=== PATIENT | male | born 1955 | race American Indian/Alaskan Native ===

== ENCOUNTER 2017-03-15 07:40 | Day surgery (SDC) | payer MEDICARE ==
[2017-03-15] MEDS ORDERED: NACL 0.9% 1000 ML 1,000 ML IV SCH (08:00)
--- NOTE | 2017-03-15 08:32 | Anesthesia Consultation ---
Anesthesia Consult and Med Hx Date of service: 03/15/17 - Airway Anesthetic Teeth Evaluation: Good (missing one lower left tooth) ROM Head & Neck: Adequate Mental/Hyoid Distance: Adequate Mallampati Class: Class II - Pulmonary Exam CTA: Yes - Cardiac Exam Cardiac Exam: RRR - Pre-Operative Health Status ASA Pre-Surgery Classification: ASA3 Proposed Anesthetic Plan: MAC - Pulmonary Hx Smoking: No Hx Respiratory Symptoms: Yes (bronchitis) COPD: Yes (02 AT NIGHT ) Hx Sleep Apnea: Yes (CPAP) - Cardiovascular System Hx Hypertension: Yes - Gastrointestinal Hx Gastroesophageal Reflux Disease: Yes - Endocrine Hx Non-Insulin Dependent Diabetes: Yes - Hematic Hx Anemia: Yes - Additional Comments Anesthesia Medical History Comments: sarcoidosis, osteoprosis, arthritis. Every morning, early, stuff has regurg.
--- NOTE | 2017-03-15 08:32 | Anesthesia Day of Surgery ---
Anesthesia Day of Surgery - Day of Surgery Patient Examined: Yes Patient H&P Reviewed: Yes Patient is NPO: Yes
[2017-03-15] MEDS ORDERED: WATER FOR IRRIG STERILE IR ONE (08:58)
[2017-03-15] MEDS ORDERED: DIPRIVAN 10 MG/ML IV ONE ×2 (09:08)
[2017-03-15] MEDS ORDERED: PEPCID IV ONE (09:15)
--- NOTE | 2017-03-15 12:01 | Short Stay Summary ---
Short Stay Documentation Date of service: 03/15/17 - History H&P: obtained from office - Allergies and Medications Current Medications: Allergies No Known Allergies Allergy (Verified 03/15/17 07:41) Home Medications Medication Instructions Recorded Confirmed Last Taken Type ALBUTEROL Inhaler [ProAir HFA 2 puff INHALATION PRN PRN 06/29/15 06/29/15 06:00 History Inhaler] Allopurinol [Zyloprim] 300 mg PO DAILY 06/29/15 06/29/15 03/14/17 History Cholecalciferol (Vitamin D3) 400 unit PO DAILY 06/29/15 06/29/15 03/14/17 History [Vitamin D] Diclofenac Dr [Voltaren Dr] 75 mg PO DAILY 06/29/15 06/29/15 03/14/17 History Folic Acid 1 mg PO QDAY 06/29/15 06/29/15 03/14/17 History Gabapentin [Neurontin] 300 mg PO TID 06/29/15 06/29/15 03/14/17 History Hydroxychloroquine [Plaquenil] 200 mg PO DAILY 06/29/15 06/29/15 03/14/17 History Lisinopril/Hydrochlorothiazide 1 tab PO DAILY 06/29/15 06/29/15 03/14/17 History [Zestoretic 20-12.5 mg] Methotrexate Sodium [Trexall] 2.5 mg PO DAILY 06/29/15 06/29/15 02/10/17 History Mometasone/Formoterol [Dulera 200 2 puff INHALATION BID 06/29/15 06/29/15 History Mcg/5 Mcg Inhaler] Omeprazole [PriLOSEC] 20 mg PO DAILY 06/29/15 06/29/15 03/14/17 History Oxycodone HCl [Oxycontin] 10 mg PO BID 06/29/15 06/29/15 03/14/17 History Prednisone [predniSONE (Emmie) ER 5 mg PO QDAY 06/29/15 06/29/15 03/14/17 History TAB] Tamsulosin [Flomax] 0.4 mg PO DAILY 06/29/15 06/29/15 03/14/17 History fentaNYL [Fentanyl] 1 patch TRANSDERMA Q72HR 01/06/29/15 03/14/17 History sulfaSALAzine [Azulfidine] 500 mg PO DAILY 06/29/15 06/29/15 03/14/17 History Active Medications Sodium Chloride (Nacl 0.9% 1000 Ml) 1,000 mls @ 50 mls/hr IV DIRECT CALOS Last Admin: 03/15/17 08:51 Dose: 50 mls/hr - Brief post op/procedure progress note Date of procedure: 03/15/17 Procedure: see dictation Estimated blood loss: none Pathology: none - Disposition Condition at discharge: Good Disposition: DC-01 TO HOME OR SELFCARE - Discharge Diagnoses (1) Dysphagia Status: Acute Qualifiers: Dysphagia type: D Short Stay Discharge Plan Activity: other (no driving for 24 hours) Weight Bearing Status: Full Weight Bearing Diet: regular Follow up with: SIVA YOUSSEF MD [Primary Care Provider] - 7 Days
--- NOTE | 2017-03-15 12:05 | Operative Report ---
Operative Report Operative Report: Date of procedure: 03/15/2017 Procedure: Esophagogastroduodenoscopy with balloon dilation of the distal esophagus to 18 mm. Preprocedure diagnosis: Dysphagia to solid foods Post procedure diagnosis: [Benign, peptic stricture at esophagogastric junction] Endoscopist: Dr. Philip Anesthesia: Monitored anesthesia care per anesthesia department Medications: Propofol per anesthesia Estimated blood loss: 0 After careful discussion of the nature and purpose of the procedure as well as details the technique risks benefits and alternatives consent was obtained. The patient was placed in the left lateral decubitus position and medicated per anesthesia. The tip of the [employer] EQ 570 video scope was passed per orum under direct vision into the esophagus and advanced into the stomach and descending duodenum. The descending duodenum the duodenal bulb and pylorus were symmetrical and normal. The scope was withdrawn into the stomach and the stomach then gently insufflated with air. The antrum was normal. The stomach was further insufflated and the scope was then retroflexed and partially withdrawn. The cardia, fundus, and body of the stomach were within normal limits and easily distensible.The scope was then withdrawn in the forward position. The esophagogastric junction was at [20 cm. There was a peptic stricture present at the esophagogastric junction. The esophagogastric junction was then dilated with the balloon. A 15-18 mm balloon was passed and the esophagogastric junction dilated over 2 minutes under direct observation.]. The esophageal body was normal throughout. The procedure was was well tolerated and the patient was observed in recovery. Impressions: Peptic stricture of the esophagogastric junction. Status post balloon dilation Plan: Continue acid suppression. Redilate when necessary. Electronically signed: Jose Philip MD
[2017-03-15 12:10] VITALS: BP 112/56
--- NOTE | 2017-03-15 13:20 | Post Anesthesia Evaluation ---
- Post Anesthesia Evaluation Patient Participated: Yes Airway Patent: Yes Stable Respiratory Function: Yes Temp > 96.8F: Yes Pain Manageable: Yes Adequeate Hydration: Yes Anesthesia Complications: No
== END 2017-03-15 07:41 | disposition home or self-care (01) ==
LOC: GIO 07:40
PROVIDERS: ATTEND Internal Medicine Gastroenterology
DX: K22.2 Esophageal obstruction (principal); D64.9 Anemia, unspecified; M19.90 Unspecified osteoarthritis, unspecified site; E11.9 Type 2 diabetes mellitus without complications; M81.0 Age-related osteoporosis without current pathological fracture; K21.9 Gastro-esophageal reflux disease without esophagitis; J44.9 Chronic obstructive pulmonary disease, unspecified; G47.33 Obstructive sleep apnea (adult) (pediatric); I10 Essential (primary) hypertension; Z98.890 Other specified postprocedural states; Z96.60 Presence of unspecified orthopedic joint implant; Z79.899 Other long term (current) drug therapy; Z80.3 Family history of malignant neoplasm of breast; Z80.42 Family history of malignant neoplasm of prostate
CPT/HCPCS: 43249; 82962; C1726; J2704; J7030

== ENCOUNTER 2018-01-06 10:04 | Emergency (ER) | payer MEDICARE ==
[2018-01-06 10:15] VITALS: BP 112/69
[2018-01-06] MEDS ORDERED: DILAUDID IM ONE (11:07)
[2018-01-06] MEDS ORDERED: TORADOL IM ONE (11:07)
--- NOTE | 2018-01-06 11:07 | Emergency Department Report ---
ED General Adult HPI - General Chief complaint: Pain General Stated complaint: PAIN/HIP Time Seen by Provider: 01/06/18 11:02 Source: patient Mode of arrival: Ambulatory Limitations: No Limitations - History of Present Illness Initial comments: Patient is a 62-year-old -[place] male with a past medical history rheumatoid arthritis and chronic pain and takes oxycodone and fentanyl for pain and states that he was handcuffed yesterday and fell to the ground. Patient is complaining of left shoulder pain and hand pain. Patient states pain is 8 out of 10 in severity couldn't sleep last night despite taking his pain management. Patient had no loss of consciousness or head injury - Related Data Home Medications Medication Instructions Recorded Confirmed Last Taken ALBUTEROL Inhaler [ProAir HFA 2 puff INHALATION PRN PRN 06/29/15 06/29/15 06:00 Inhaler] Allopurinol [Zyloprim] 300 mg PO DAILY 06/29/15 06/29/15 03/14/17 Cholecalciferol (Vitamin D3) 400 unit PO DAILY 06/29/15 06/29/15 03/14/17 [Vitamin D3] Diclofenac Dr [Voltdov Dr] 75 mg PO DAILY 06/29/15 06/29/15 03/14/17 Folic Acid 1 mg PO QDAY 06/29/15 06/29/15 03/14/17 Gabapentin [Neurontin] 300 mg PO TID 06/29/15 06/29/15 03/14/17 Hydroxychloroquine [Plaquenil] 200 mg PO DAILY 06/29/15 06/29/15 03/14/17 Lisinopril/Hydrochlorothiazide 1 tab PO DAILY 06/29/15 06/29/15 03/14/17 [Zestoretic 20-12.5 mg] Methotrexate Sodium [Trexall] 2.5 mg PO DAILY 06/29/15 06/29/15 02/10/17 Mometasone/Formoterol [Dulera 200 2 puff INHALATION BID 06/29/15 06/29/15 Mcg/5 Mcg Inhaler] Omeprazole [PriLOSEC] 20 mg PO DAILY 06/29/15 06/29/15 03/14/17 Oxycodone HCl [Oxycontin] 10 mg PO BID 06/29/15 06/29/15 03/14/17 Prednisone [predniSONE (Emmie) ER 5 mg PO QDAY 06/29/15 06/29/15 03/14/17 TAB] Tamsulosin [Flomax] 0.4 mg PO DAILY 06/29/15 06/29/15 03/14/17 fentaNYL [Fentanyl] 1 patch TRANSDERMA Q72HR 06/29/15 06/29/15 03/14/17 sulfaSALAzine [Azulfidine] 500 mg PO DAILY 06/29/15 06/29/15 03/14/17 Allergies Allergy/AdvReac Type Severity Reaction Status Date / Time No Known Allergies Allergy Verified 01/06/18 10:09 ED Review of Systems ROS: Stated complaint: PAIN/HIP Other details as noted in HPI Comment: All other systems reviewed and negative ED Past Medical Hx - Past Medical History Hx Hypertension: Yes Hx Congestive Heart Failure: Yes Hx Diabetes: Yes (DIET CONTROLLED) Hx Arthritis: Yes Hx Headaches / Migraines: Yes (MIGRAINES YOUNG ADULT) Hx Asthma: Yes Hx COPD: Yes (02 AT NIGHT ) - Surgical History Hx Cholecystectomy: Yes - Social History Smoking Status: Never Smoker - Medications Home Medications: Home Medications Medication Instructions Recorded Confirmed Last Taken Type ALBUTEROL Inhaler [ProAir HFA 2 puff INHALATION PRN PRN 06/29/15 06/29/15 06:00 History Inhaler] Allopurinol [Zyloprim] 300 mg PO DAILY 06/29/15 06/29/15 03/14/17 History Cholecalciferol (Vitamin D3) 400 unit PO DAILY 06/29/15 06/29/15 03/14/17 History [Vitamin D3] Diclofenac [Voltaren Dr] 75 mg PO DAILY 06/29/15 06/29/15 03/14/17 History Folic Acid 1 mg PO QDAY 06/29/15 06/29/15 03/14/17 History Gabapentin [Neurontin] 300 mg PO TID 06/29/15 06/29/15 03/14/17 History Hydroxychloroquine [Plaquenil] 200 mg PO DAILY 06/29/15 06/29/15 03/14/17 History Lisinopril/Hydrochlorothiazide 1 tab PO DAILY 06/29/15 06/29/15 03/14/17 History [Zestoretic 20-12.5 mg] Methotrexate Sodium [Trexall] 2.5 mg PO DAILY 06/29/15 06/29/15 02/10/17 History Mometasone/Formoterol [Dulera 200 2 puff INHALATION BID 06/29/15 06/29/15 History Mcg/5 Mcg Inhaler] Omeprazole [PriLOSEC] 20 mg PO DAILY 06/29/15 06/29/15 03/14/17 History Oxycodone HCl [Oxycontin] 10 mg PO BID 06/29/15 06/29/15 03/14/17 History Prednisone [predniSONE (Emmie) ER 5 mg PO QDAY 06/29/15 06/29/15 03/14/17 History TAB] Tamsulosin [Flomax] 0.4 mg PO DAILY 06/29/15 06/29/15 03/14/17 History fentaNYL [Fentanyl] 1 patch TRANSDERMA Q72HR 06/29/15 06/29/15 03/14/17 History sulfaSALAzine [Azulfidine] 500 mg PO DAILY 06/29/15 06/29/15 03/14/17 History ED Physical Exam - General Limitations: No Limitations General appearance: alert, in no apparent distress - Head Head exam: Present: atraumatic, normocephalic - Eye Eye exam: Present: normal appearance - ENT ENT exam: Present: mucous membranes moist - Neck Neck exam: Present: normal inspection - Respiratory Respiratory exam: Present: normal lung sounds bilaterally. Absent: respiratory distress - Cardiovascular Cardiovascular Exam: Present: regular rate, normal rhythm. Absent: systolic murmur, diastolic murmur, rubs, gallop - GI/Abdominal GI/Abdominal exam: Present: soft, normal bowel sounds - Rectal Rectal exam: Present: deferred - Extremities Exam Extremities exam: Present: normal inspection, other (patient has full range of motion to the left shoulder which is where he is complaining of the greatest amount of pain. Patient has no deltoid deformity. Patient can open and close his bilateral hands there is no evidence of any deformity or obvious trauma to) - Back Exam Back exam: Present: normal inspection - Neurological Exam Neurological exam: Present: alert, oriented X3 - Psychiatric Psychiatric exam: Present: normal affect, normal mood - Skin Skin exam: Present: warm, dry, intact, normal color. Absent: rash ED Course Vital Signs 01/06/18 10:09 Temperature 97.7 F Pulse Rate 125 H Respiratory 22 Rate Blood Pressure 112/69 O2 Sat by Pulse 95 Oximetry ED Medical Decision Making - Medical Decision Making Patient be given a shot of Toradol and 0.5 mg of Dilaudid and will be discharged home. Critical care attestation.: If time is entered above; I have spent that time in minutes in the direct care of this critically ill patient, excluding procedure time. ED Disposition Clinical Impression: Musculoskeletal disease Chronic pain Qualifiers: Chronic pain type: other chronic pain Qualified Code(s): G89.29 - Other chronic pain Disposition: DC-01 TO HOME OR SELFCARE Is pt being admited?: No Does the pt Need Aspirin: No Condition: Stable Referrals: KEN COREA MD [Primary Care Provider] - 3-5 Days
== END 2018-01-06 11:58 | disposition home or self-care (01) ==
LOC: ED 10:04
DX: G89.29 Other chronic pain (principal); M25.512 Pain in left shoulder; I11.0 Hypertensive heart disease with heart failure; I50.9 Heart failure, unspecified; E11.9 Type 2 diabetes mellitus without complications; M19.90 Unspecified osteoarthritis, unspecified site; G43.909 Migraine, unspecified, not intractable, without status migrainosus; J44.9 Chronic obstructive pulmonary disease, unspecified
CPT/HCPCS: 96372; 99282; J1170; J1885